=== PATIENT | male | born 1945 | race Caucasian/White ===

== ENCOUNTER 2019-05-14 09:03 | Inpatient (IN) ==
[2019-05-14] MEDS ORDERED: METOPROLOL TARTRATE 1 MG/ML AMPUL IV ONE (09:59)
--- NOTE | 2019-05-14 10:37 | ERNOTE ---
Medical Problem HPI - General Chief Complaint: General Assessment Time Seen by Provider: 05/14/19 09:16 Source: patient, family Exam Limitations: no limitations - Immun/Allergies/Home Medications Immunizations: IMMUNIZATION HX Immunizations Up to Date Yes History of Influenza Vaccine Yes Hx Pneumococcal Vaccination No Allergies/Adverse Reactions: Allergies No Known Allergies Allergy (Unverified 09/08/18 14:01) Home Medications: HOME MEDICATIONS Albuterol Sulfate [Proair Hfa] 1 - 2 puff INHALATION Q4H PRN 09/08/18 [Last Taken Unknown] Apixaban [Eliquis] 5 mg PO BID 09/08/18 [Last Taken Unknown] Furosemide [Lasix] 40 mg PO DAILY #15 tab 09/08/18 [Last Taken Unknown] Levothyroxine Sodium [Levo-T] 25 mcg PO DAILY 09/08/18 [Last Taken Unknown] Losartan/Hydrochlorothiazide [Losartan-Hctz 50-12.5 mg Tab] 1 ea PO DAILY 09/08/18 [Last Taken Unknown] Metoprolol Succinate [Toprol Xl] 50 mg PO DAILY 09/08/18 [Last Taken Unknown] Nitroglycerin [Nitrostat] 0.3 mg SUBLINGUAL PRN PRN 09/08/18 [Last Taken Unknown] Rosuvastatin Calcium [Crestor] 40 mg PO DAILY 09/08/18 [Last Taken Unknown] amLODIPine BESYLATE [Norvasc] 5 mg PO DAILY 09/08/18 [Last Taken Unknown] - History of Present History Narrative: Patient woke up at approximately 2:00 this morning with right-sided weakness and numbness. He is unable to use his right side very well and is continuously falling to the right. He was seen at [facility] this morning and was found to not have a stroke and was sent home. They called their family doctor in [place] and he told him to either come here or go to the [facility] for further evaluation and admission. Timing: constant Severity: moderate Review of Systems - Review of Systems Constitutional: Present: See HPI EYE: Present: no symptoms reported ENT: Present: no symptoms reported Respiratory: Present: no symptoms reported Cardiology: Present: no symptoms reported Gastrointestinal/Abdominal: Present: no symptoms reported Genitourinary: Present: no symptoms reported Musculoskeletal: Present: no symptoms reported Skin: Present: no symptoms reported Neurological: Present: See HPI Endocrine: Present: no symptoms reported Hematologic/Lymphatic: Present: no symptoms reported Psych: Present: no symptoms reported Medical History (Last Updated 09/08/18 @ 14:58 by Rizwana Flowers RN) Atrial fibrillation CHF (congestive heart failure) Hypertension Hypothyroidism Pulmonary embolism Surgical History: Surgical History (Last Updated 05/14/19 @ 09:15 by Lanre Pereira RN) Hx of eye surgery Hx of knee surgery Social History: Tobacco: Smoking Status: Never smoker Physical Exam - Physical Exam General Appearance: Present: wd/wn, alert, moderate distress Head Exam: Present: normal inspection, no evidence of injury Eye Exam: Normal inspection: bilateral, PERRL: bilateral Ears, Nose, Throat: Present: normal ENT inspection, H, normal pharynx Neck: Present: normal inspection, nontender Respiratory: Present: no respiratory distress, normal breath sounds, no accessory muscle use, chest nontender, lungs clear Cardiovascular/Chest: Present: regular rate, rhythm, no murmur, normal peripheral pulses Gastrointestinal/Abdominal: Present: normal bowel sounds, nontender, nondistended, soft, no organomegaly Rectal Exam: Present: deferred Back Exam: Present: normal inspection, normal range of motion Extremity Exam: Present: normal inspection, non-tender, no edema, normal range of motion Neurological Exam: Present: alert, oriented, normal mood/affect, other - Patient presents with right-sided weakness of both the upper and lower extremity. He has arm drift and is unable to hold the right leg up all both on the right side. He has some subjective numbness on the right side and is unable to do the finger-nose test on the right and is difficulty with the grijalva scratching of the right leg on the left as well. Skin Exam: Present: normal color, warm/dry Lymphatic Exam: Present: no adenopathy Progress - Vital Signs Patient's Vital Signs:: I have reviewed the patient's vital signs. Vital Signs: Vital Signs 05/14/19 09:04 05/14/19 09:14 05/14/19 10:26 Temperature 36.9 C Pulse Rate 73 68 67 Respiratory Rate 16 14 Blood Pressure 140/73 136/56 132/74 O2 Sat by Pulse Oximetry 98 99 - Progress/Reassessment Chief Complaint: General Assessment Progress:: Unchanged - Transfer of Care Additional Notes: I have reviewed all the laboratory tests, EKG and head CT from [facility]. Plan - Plan Plan: Patient will need to be admitted to a monitored bed. As he was unable to take his Lopressor this morning I am giving him 5 mg of Lopressor IV to help maintain control of his heart rate. Patient will likely need an echocardiogram, carotid Doppler ultrasounds and a brain MRI. I am also suspecting that he is going to need a PT OT eval with outpatient stroke rehab. Departure Clinical Impression: Atrial fibrillation and flutter, Acute CVA (cerebrovascular accident) - Departure Disposition: Still a patient Condition: Fair Referrals: Mitch Lynch DO [Primary Care Provider] -
--- NOTE | 2019-05-14 15:33 | HP ---
Chief Complaint - Chief Complaint Date of Service: 05/14/19 Time of Service: 15:31 History of Present Illness: Jose Bonner is a 74-year-old white male with past medical history of hypertension, hyperlipidemia, hypothyroidism, chronic atrial fibrillation, who was admitted on 05/14/2019 because of right-sided weakness and numbness. As per daughter the patient, who is deaf and mute, woke up this morning with numbness and right-sided weakness. He was unsteady with his gait bumping into the carrillo when he ambulated. He was brought to the [facility] this morning where they did an EKG and a head CT scan and was told that he had no stroke and sent home. His blood work were essentially WNL except for a slightly low Hb of 11.7. The family got in touch with their primary care physician in [facility] and they were told to bring the patient in either to [facility] or to [facility]. When he got to our emergency room the emergency room physician on examination found right hemiparesis. He was then admitted for observation and further work-up and evaluation. We ordered an MRI of his brain which showed an acute left parietal lobe infarct. We will transfer patient to acute status and schedule him a c arotid ultrasound as well as an echocardiogram with bubble study. Medical History (Last Reviewed 05/14/19 @ 11:44 by Adriana Gaitan RN) Atrial fibrillation CHF (congestive heart failure) Hypertension Hypothyroidism Pulmonary embolism Surgical History: Surgical History (Last Reviewed 05/14/19 @ 11:44 by Adriana Gaitan RN) Hx of eye surgery Hx of knee surgery Family History: Family History (Last Reviewed 05/14/19 @ 11:44 by Adriana Gaitan RN) Other Family history unknown Social History: (Last Updated 05/14/19 @ 11:45 by Adriana Gaitan RN) Social History: Marital status: lives independently: Yes household members: spouse number of children: 4 number of grandchildren: 9 parent marital status: Tobacco: Smoking Status: Never smoker Alcohol: alcohol intake: never Substance Use: substance use type: does not use Review Of Systems (GEN) - Review of Systems Generalized/Overall Review: Present: Weakness. Absent: Chills, Fever EENTM: Present: Blurred Vision - macular degeneration Respiratory: Absent: Cough, Shortness of Breath, Orthopnea, Wheezing Cardiac: Absent: Chest Pain, Edema, Palpitations Abdominal: Absent: Nausea, Vomiting, Hematemesis, Abdominal Pain Genitourinary: Absent: Urgency, Frequency Musculoskeletal: Absent: Joint Pain, Back Pain Neurological: Present: Numbness, Weakness - right sided. Absent: Anxiety, Depressed Skin: Absent: Lesions, Rash Misc: All systems neg except as marked Immunizations: IMMUNIZATION HX Immunizations Up to Date Yes History of Influenza Vaccine Yes Hx Pneumococcal Vaccination No Allergies/Adverse Reactions: Allergies Allergy/AdvReac Type Severity Reaction Status Date / Time No Known Allergies Allergy Unverified 09/08/18 14:01 Home Medications: HOME MEDICATIONS Apixaban [Eliquis] 5 mg PO BID 09/08/18 [Last Taken Unknown] Levothyroxine Sodium [Levo-T] 50 mcg PO DAILY 09/08/18 [Last Taken Unknown] Metoprolol Succinate [Toprol Xl] 50 mg PO DAILY 09/08/18 [Last Taken Unknown] Nitroglycerin [Nitrostat] 0.3 mg SUBLINGUAL PRN PRN 09/08/18 [Last Taken Unknown] Furosemide [Lasix] 20 mg PO DAILY 05/14/19 [Last Taken Unknown] Losartan Potassium [Cozaar] 50 mg PO DAILY 05/14/19 [Last Taken Unknown] Polyvinyl Alcohol/Povidone/Pf [Refresh Classic Eye Drops] 1 ea OPHTHALMIC (EYE) Q2H 05/14/19 [Last Taken Unknown] Exam - Exam Vital Signs: Vital Signs - Last Taken Temp 36.7 C 05/14/19 15:26 Pulse 96 05/14/19 15:26 Resp 18 05/14/19 15:26 BP 143/68 05/14/19 15:26 Pulse Ox 93 05/14/19 15:26 Constitutional: Present: Alert, Oriented x3, Cooperative, Obese ENT Exam: Present: other - deaf and mute Eye Exam: bilateral eye: normal inspection, PERRL, left eye: EOMI - lateral rectus weakness Neck: Present: supple. 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 His MRI showed an acute left parietal lobe infarct. His motor and sensory weakness is on the right with equivocal left lateral rectus palsy. As per daughter who does sign language for him, his weakness has significantly improved from when they presented to the ED. He is on Eliquis for his chronic atrial fibrillation. We will do a carotid ultrasound, echocardiogram with bubble study, and add ESR, CRP . I will try to talk to neurology to see if we will need to add a baby aspirin to his Eliquis. I talked to the family that this will increase risk of bleeding. Will get PT/OT/ST evaluation and treatment. - Assessment/Plan (1) Acute CVA (cerebrovascular accident) Problem: Acute (2) Hypertension Problem: Chronic Qualifiers: Hypertension type: essential hypertension Qualified Code(s): I10 - Essential (primary) hypertension (3) Hyperlipidemia Problem: Chronic Qualifiers: Hyperlipidemia type: pure hypercholesterolemia Qualified Code(s): E78.00 - Pure hypercholesterolemia, unspecified (4) Atrial fibrillation and flutter Problem: Chronic (5) Hypothyroidism Problem: Chronic
[2019-05-14] MEDS: APIXABAN 5 MG TABLET PO SCH (20:32)
[2019-05-15 06:30] LABS: Hematocrit 35.9 % (42.0-52.0); Hemoglobin 11.2 gm/dL (13.5-18.0); Mean Cell Volume 88.6 fl (78-100); Mean Corpuscular Hemoglobin 27.7 pg (27-31); Mean Corpuscular Hgb Conc 31.2 g/dl (32-36); Neutrophil # 3.9 K/mm3 (1.3-6.0); Neutrophil % 71.6 % (42-75.0); Platelet Count 137 K/mm3 (150-450); Red Blood Count 4.05 M/mm3 (4.7-6.0); Red Cell Distribution Width 15.6 % (11.5-14.0); White Blood Count 5.4 K/mm3 (4.0-10.5)
[2019-05-15 06:39] LABS: Anion Gap 11.7 mmol/L (6.8-13.8); BUN/Creatinine Ratio 17.9 (9.0-21.6); Blood Urea Nitrogen 20 mg/dL (6-23); Calcium * 8.3 mg/dL (7.9-10.9); Carbon Dioxide 29.3 mmol/L (24-32.6); Chloride 104 mmol/L (97-106); Estimated Creat Clear 56.1; Glucose * 100 mg/dL (70-110); Sodium 141 mmol/L (132-142)
[2019-05-15] MEDS ORDERED: LEVOTHYROXINE SODIUM 50 MCG TABLET PO SCH (07:00)
--- NOTE | 2019-05-15 08:50 | PN ---
Subjective - Date and Time Seen Date: 05/15/19 Time: 08:42 Subjective Narrative: NAD. strenght and numbness improving. for PT/OT eval and tx today. possible discharge in the morning. Objective - Review of Systems Generalized/Overall Review: Reports: Weakness. Denies: Chills, Fever EENTM: Denies: Blurred Vision Respiratory: Denies: Cough, Shortness of Breath, Orthopnea Cardiac: Denies: Chest Pain, Edema, Palpitations Abdominal: Denies: Nausea, Vomiting, Abdominal Pain Genitourinary Symptoms: Denies: Urgency, Frequency Musculoskeletal Complaints: Denies: Joint Pain, Back Pain Neurological: Denies: Headache Skin: Denies: Lesions, Rash Misc: All systems neg except as marked - Vitals Vitals: Last Vital Signs Temp 36.5 C 05/15/19 06:00 Pulse 70 05/15/19 07:26 Resp 12 05/15/19 06:00 BP 157/69 H 05/15/19 06:00 Pulse Ox 95 05/15/19 06:00 - Abnormal Lab Findings Abnormal Lab Findings: Abnormal Lab Results 05/15/19 05/15/19 Range/Units 06:05 06:05 RBC 4.05 L (4.7-6.0) M/mm3 Hgb 11.2 L (13.5-18.0) gm/dL Hct 35.9 L (42.0-52.0) % MCHC 31.2 L (32-36) g/dl RDW 15.6 H (11.5-14.0) % Plt Count 137 L (150-450) K/mm3 Lymphocytes % 15.7 L (20-51) % Monocytes % 9.1 H (0.0-9) % Lymphocytes # 0.85 L (1.5-3.5) k/mm3 ESR 24 H (0-10) mm/hr - Exam Constitutional: Present: Alert, Oriented x3, Cooperative ENT Exam: Present: other - deaf/mute Neck: Present: supple. Absent: lymphadenopathy (R), lymphadenopathy (L) Respiratory: Present: decreased breath sounds, No rales, No wheezing Cardiovascular/Chest: Present: no JVD, no rub, irregularly irregular Abdomen: Present: Normal bowel sounds, soft, nontender, nondistended Extremity: Present: no pedal edema, calf tenderness Neurologic: Present: literacy specialist II-XII nml as tested, EOM palsy - he is able to move his left eye now laterally, motor weakness - improving, sensory deficit - improving Assessment/Plan Plan Narrative: Dilma is a 74-year old white male who was admitted for right-sided hemiparesis a nd was found to have an acute CVA of his left parietal lobe. He is on Eliquis for atrial fibrillation. He is scheduled to have a carotid ultrasound and echocardiogram with bubble study today. We also referred him to physical therapy/Occupational Therapy. He is clinically improving with his strength/sensation on his right upper and lower extremity as well. Possible discharge in the morning pending PT/OT evaluation and recommendation if patient is safe for transfers. We will schedule him neurology consult on an outpatient basis. I will still try to get in touch with neurology today to see if we need to add a baby aspirin or clopidogrel gel to his Eliquis. - Problems/Diagnosis (1) Acute CVA (cerebrovascular accident) Problem: Acute (2) Hypertension Problem: Chronic Qualifiers: Hypertension type: essential hypertension Qualified Code(s): I10 - Essential (primary) hypertension (3) Hyperlipidemia Problem: Chronic Qualifiers: Hyperlipidemia type: pure hypercholesterolemia Qualified Code(s): E78.00 - Pure hypercholesterolemia, unspecified (4) Atrial fibrillation and flutter Problem: Chronic (5) Hypothyroidism Problem: Chronic
[2019-05-15] MEDS ORDERED: METOPROLOL SUCCINATE 50 MG TABLET.SA PO SCH (09:00)
[2019-05-15] MEDS ORDERED: LOSARTAN POTASSIUM 50 MG TABLET PO SCH (09:00)
[2019-05-15] MEDS ORDERED: FUROSEMIDE 20 MG TABLET PO SCH (09:00)
[2019-05-15] MEDS: APIXABAN 5 MG TABLET PO SCH (09:28)
[2019-05-15] MEDS ORDERED: ACETAMINOPHEN 325 MG TABLET PO PRN (09:59)
[2019-05-15] MEDS ORDERED: HYDROCHLOROTHIAZIDE 12.5 MG CAPSULE PO SCH (10:00)
[2019-05-15] MEDS ORDERED: [UNRECOGNIZED DRUG - REMARK] EACHEYE PRN (11:06)
--- NOTE | 2019-05-15 11:11 | DS ---
(1) Acute CVA (cerebrovascular accident) Problem: Acute (2) Hypertension Problem: Chronic Qualifiers: Hypertension type: essential hypertension Qualified Code(s): I10 - Essential (primary) hypertension (3) Hyperlipidemia Problem: Chronic Qualifiers: Hyperlipidemia type: pure hypercholesterolemia Qualified Code(s): E78.00 - Pure hypercholesterolemia, unspecified (4) Atrial fibrillation and flutter Problem: Chronic (5) Hypothyroidism Problem: Chronic Date of Discharge:: 05/15/19 Hospital Course: Jose Bonner is a 74-year-old white male with past medical history of hypertension, hyperlipidemia, hypothyroidism, chronic atrial fibrillation, who was admitted on 05/14/2019 because of right-sided weakness and numbness. As per daughter the patient, who is deaf and mute, woke up this morning with numbness and right-sided weakness. He was unsteady with his gait bumping into the carrillo when he ambulated. He was brought to the [facility] this morning where they did an EKG and a head CT scan and was told that he had no stroke and sent home. His blood work were essentially WNL except for a slightly low Hb of 11.7. The family got in touch with their primary care physician in [facility] and they were told to bring the patient in either to [facility] or to [facility]. When he got to our emergency room the emergency room physician on examination found right hemiparesis. He was then admitted for observation and further work-up and evaluation. We ordered an MRI of his brain which showed an acute left parietal lobe infarct. We will transfer patient to acute status and schedule him a carotid ultrasound as well as an echocardiogram with bubble study. Procedures Performed: none Results and Findings: Lab Pending Results 05/15/19 06:05: WBC 5.4, RBC 4.05 L, Hgb 11.2 L, Hct 35.9 L, MCV 88.6, MCH 27.7, MCHC 31.2 L, RDW 15.6 H, Plt Count 137 L, MPV 10.0, Immature Gran % (Auto) 0.20, Immature Gran # (Auto) 0.01, Neutrophils % 71.6, Lymphocytes % 15.7 L, Monocytes % 9.1 H, Eosinophils % 3.0, Basophils % 0.4, Nucleated RBC % 0.0, Neutrophils # 3.9, Lymphocytes # 0.85 L, Monocytes # 0.5, Eosinophils # 0.2, Absolute Basophils 0.0 05/15/19 06:05: ESR 24 H 05/15/19 06:05: Sodium 141, Plasma Sodium 141, Potassium 4.0, Chloride 104, Carbon Dioxide 29.3, Anion Gap 11.7, BUN 20, Creatinine 1.12, Est GFR (Non-Af Amer) 68, BUN/Creatinine Ratio 17.9, Random Glucose 100, Calcium 8.3, C-Reactive Prot, Quant Less than 0.2 Discharge Location: Home Disposition: Home self-care Condition: Fair Discharge Activity: Activity as tolerated Discharge Diet: Low salt - And how is it Referrals: Casie Hale ARNP [Primary Care Provider] - Additional Patient Instructions (free text): Refer to Neurology at discharge for acute CVA. Complete Home Medications List: Complete Home Medication List: Apixaban [Eliquis] 5 mg PO BID 09/08/18 Levothyroxine Sodium [Levo-T] 50 mcg PO DAILY 09/08/18 Nitroglycerin [Nitrostat] 0.3 mg SUBLINGUAL PRN PRN 09/08/18 Furosemide [Lasix] 20 mg PO DAILY 05/14/19 Losartan Potassium [Cozaar] 50 mg PO DAILY 05/14/19 Polyvinyl Alcohol/Povidone/Pf [Refresh Classic Eye Drops] 1 ea OPHTHALMIC (EYE) Q2H PRN 05/14/19 Acetaminophen [Tylenol] 650 mg PO Q4H PRN 05/15/19 Blood Eye Drop 1 drp EACHEYE Q2H PRN 05/15/19 Hydrochlorothiazide 12.5 mg PO DAILY 05/15/19 Metoprolol Succinate 25 mg PO DAILY 05/15/19 Rosuvastatin Calcium [Crestor] 40 mg PO DAILY 05/15/19
--- NOTE | 2019-05-15 15:59 | DS ---
Date of Discharge:: 05/15/19 Hospital Course: Jose Bonner is a 74-year-old white male with past medical history of hypertension, hyperlipidemia, hypothyroidism, chronic atrial fibrillation, who was admitted on 05/14/2019 because of right-sided weakness and numbness. As per daughter the patient, who is deaf and mute, woke up this morning with numbness and right-sided weakness. He was unsteady with his gait bumping into the carrillo when he ambulated. He was brought to the [facility] this morning where they did an EKG and a head CT scan and was told that he had no stroke and sent home. His blood work were essentially WNL except for a slightly low Hb of 11.7. The family got in touch with their primary care physician in [facility] and they were told to bring the patient in either to [facility] or to [facility]. When he got to our emergency room the emergency room physician on examination found right hemiparesis. He was then admitted for observation and further work-up and evaluation. We ordered an MRI of his brain which showed an acute left parietal lobe infarct. We will transfer patient to acute status and schedule him a carotid ultrasound as well as an echocardiogram with bubble study. patient will benefit from half-way and physical therapy for strengthening and motor skills, and is homebound due to residual effects from acute CVA. The need for home health skilled services is directly related to the time spent face to face with the person. Procedures Performed: none Care Plan Goals: PT/OT outpatient Assessment: cva Results and Findings: Lab Pending Results 05/15/19 06:05: WBC 5.4, RBC 4.05 L, Hgb 11.2 L, Hct 35.9 L, MCV 88.6, MCH 27.7, MCHC 31.2 L, RDW 15.6 H, Plt Count 137 L, MPV 10.0, Immature Gran % (Auto) 0.20, Immature Gran # (Auto) 0.01, Neutrophils % 71.6, Lymphocytes % 15.7 L, Monocytes % 9.1 H, Eosinophils % 3.0, Basophils % 0.4, Nucleated RBC % 0.0, Neutrophils # 3.9, Lymphocytes # 0.85 L, Monocytes # 0.5, Eosinophils # 0.2, Absolute Basophils 0.0 05/15/19 06:05: ESR 24 H 05/15/19 06:05: Sodium 141, Plasma Sodium 141, Potassium 4.0, Chloride 104, Carbon Dioxide 29.3, Anion Gap 11.7, BUN 20, Creatinine 1.12, Est GFR (Non-Af Amer) 68, BUN/Creatinine Ratio 17.9, Random Glucose 100, Calcium 8.3, C-Reactive Prot, Quant Less than 0.2 Discharge Location: Home Disposition: Home Health Service [facility] Agency: [facility] Condition: Fair Face to Face Encounter completed per CMS Guidelines: Yes Discharge Activity: Activity as tolerated Discharge Diet: Low salt Referrals: Casie Hale ARNP [Primary Care Provider] - Two Weeks (hospital follow up) Additional Patient Instructions (free text): Refer to Neurology at discharge for acute CVA- [facility] Wednesday, June 12, 2019 @ 10:00AM. [facility] at discharge, new, Please call and fax discharge orders to them. Prescriptions (Any new or edited meds): Aspirin [Adult Aspirin Regimen] 81 mg PO DAILY #30 tablet.dr Transmission Status: Pending to [id number] Complete Home Medications List: Complete Home Medication List: Apixaban [Eliquis] 5 mg PO BID 09/08/18 Levothyroxine Sodium [Levo-T] 50 mcg PO DAILY 09/08/18 Nitroglycerin [Nitrostat] 0.3 mg SUBLINGUAL PRN PRN 09/08/18 Furosemide [Lasix] 20 mg PO DAILY 05/14/19 Losartan Potassium [Cozaar] 50 mg PO DAILY 05/14/19 Polyvinyl Alcohol/Povidone/Pf [Refresh Classic Eye Drops] 1 ea OPHTHALMIC (EYE) Q2H PRN 05/14/19 Acetaminophen [Tylenol] 650 mg PO Q4H PRN 05/15/19 Aspirin [Adult Aspirin Regimen] 81 mg PO DAILY #30 tablet. 05/15/19 Blood Eye Drop 1 jorge l HUMPHRIES Q2H PRN 05/15/19 Hydrochlorothiazide 12.5 mg PO DAILY 05/15/19 Metoprolol Succinate 25 mg PO DAILY 05/15/19 Rosuvastatin Calcium [Crestor] 40 mg PO DAILY 05/15/19
[2019-05-15 16:30] VITALS: BP 147/60
[2019-05-15] MEDS ORDERED: ROSUVASTATIN CALCIUM 20 MG TABLET PO SCH (21:00)
[2019-05-16] MEDS ORDERED: METOPROLOL SUCCINATE 25 MG TABLET.SA PO SCH (09:00)
--- NOTE | 2019-05-19 07:33 | ECHO ---
This report is available in the EMR
== END 2019-05-15 17:15 | disposition home health service (06) | DRG 65 ==
LOC: MS 09:03 → ER 09:03 → MS 11:10
PROVIDERS: ADMIT Internal Medicine; ATTEND Internal Medicine
DX: I48.92 Unspecified atrial flutter; I63.89 Other cerebral infarction; G81.91 Hemiplegia, unspecified affecting right dominant side; I63.9 Cerebral infarction, unspecified; I48.91 Unspecified atrial fibrillation; E78.5 Hyperlipidemia, unspecified; I50.9 Heart failure, unspecified; E03.9 Hypothyroidism, unspecified; I11.0 Hypertensive heart disease with heart failure
CPT/HCPCS: 36415; 70551; 80048; 85025; 85652; 86140; 92610; 93005; 93306; 93880; 96374; 97112; 97116; 97162; 97165; 99284; 99285; G0378